=== PATIENT | male | born 1985 | race Caucasian/White ===

== ENCOUNTER 2018-10-06 16:31 | Emergency (ER) | payer OTHER ==
[~2018-10-06] VITALS: Ht 180.3 cm; Wt 95.3 kg
[2018-10-06 20:55] VITALS: BP 132/89
== END 2018-10-06 20:56 | disposition home or self-care (01) ==
LOC: ER 16:37
DX: M79.605 Pain in left leg (principal)
CPT/HCPCS: 93971